=== PATIENT | female | born 1975 | race American Indian/Alaskan Native ===

== ENCOUNTER 2020-08-29 07:16 | Outpatient (CLI) | payer OTHER ==
--- NOTE | 2020-08-29 09:02 | Magnetic Resonance Report ---
MR LE joint LT wo con INDICATION / CLINICAL INFORMATION: MAIN. TECHNIQUE: Multiplanar, multisequence MR images were obtained. COMPARISON: None available. FINDINGS: There is a very high-grade partial or complete tear of the Achilles tendon at the musculotendinous ju nction. The rest of the tendon is markedly thickened and mildly edematous. The remainder the tendons of the ankle are unremarkable in appearance. The anterior talofibular ligament is poorly visualized a nd may be chronically torn. Similarly the calcaneofibular ligament is poorly visualized. Remainder of the ligaments of the ankle are normal. No abnormal marrow signal is seen. No soft tissue mass is pre sent. The plantar fascia is unremarkable in appearance. IMPRESSION: 1. Very high-grade partial or complete tear of the Achilles tendon at the musculotendinous junction. The remainder of the Achilles tendon is markedly thickened 2. Poor visualization of the anterior talofibular and calcaneofibular ligaments which may represent c hronic tears. Signer Name: Bakari Denny MD FACJane Signed: 08/29/2020 8:58 AM Workstation Name: [id number]
== END 2020-08-29 07:17 | disposition home or self-care (01) ==
LOC: MRI 07:16
PROVIDERS: ATTEND Orthopaedic Surgery
DX: M79.89 Other specified soft tissue disorders (principal); M79.605 Pain in left leg
CPT/HCPCS: 73721